=== PATIENT | female | born 1970 | race Caucasian/White ===

== ENCOUNTER 2016-11-23 13:27 | Inpatient (IN) | payer SELFPAY ==
[~2016-11-23 13:27] MED LIST: ACID CONTROL150 M2 PO; ALPRAZOLAM0.25 M3 PO; ATENOLOL50 M1 PO; CIPRO500 M1 PO; CONCERTA18 MG; DIAZEPAM2 M2 PO; DULOXETINE HCL60 M1 PO; KEFLEX500 MG PO; LYRICA100 MG/CAP PO; MECLIZINE HCL25 M3 PO; MELATONIN5 M7 PO; MOTRIN600 MG PO; NORCO 5/325 TAB1 TAB PO; PANTOPRAZOLE SO40 M3 PO; SYNTHROID112 MC1 PO; SYNTHROID125 MCG; TIZANIDINE HCL4 M3 PO; TRAMADOL HCL50 MG PO; TRIAMTERENE-HC1 EAC3 PO; VYTORIN 10-201 EACH PO; ZOCOR5 MG; ZOFRAN ODT8 MG PO
[2016-11-23] MEDS ORDERED: SEROQUEL XR50 MG/TAB PO (13:46)
[2016-11-23] MEDS ORDERED: VIIBRYD20 M1 PO (13:47)
[2016-11-23] MEDS ORDERED: PROPRANOLOL HCL40 M2 PO (14:03)
[2016-11-23 14:10] LABS: BASO % 0.3 % (0-2); EOS % 0.7 % (0-7); EOSINOPHIL ABSOLUTE COUNT 0.1 tho/cmm (0.0-0.7); HCT-HEMATOCRIT 42.4 % (34.0-49.0); HGB-HEMOGLOBIN 14.7 gm/dl (12.0-15.5); IMMATURE GRANULOCYTES ABSOLUTE 0.03 tho/cmm (0-0.03); IMMATURE GRANULOCYTES PERCENT 0.3 % (0-0.3); LYMPH ABSOLUTE COUNT 2.6 tho/cmm (0.8-4.5); MCH (MEAN CORPUSCULAR HGB) 31.7 pg (28.0-32.0); MCHC MEAN CORPUSCULAR HGB CONC 34.7 % (32.0-36.0); MCV (MEAN CELL VOLUME) 91.4 fl (82.0-96.0); MEAN PLATELET VOLUME 11.4 cmc (9.4-12.4); MONO % 5.1 % (0-12); MONOCYTE ABSOLUTE COUNT 0.5 tho/cmm (0.0-1.2); NEUTROPHIL ABSOLUTE COUNT 6.7 tho/cmm (1.6-8.0); NEUTROPHIL-AUTOMATED 6.7 tho/cmm (1.6-8.0); NEUTROPHILS % 67.6 % (40-80); PLATELET COUNT 244 tho/cmm (150-450); RED BLOOD COUNT 4.64 mil/cmm (4.00-5.20); RED CELL DISTRIBUTION WIDTH 14.5 % (12.4-16.4); WHITE BLOOD COUNT 9.9 tho/cmm (4.0-10.0)
[2016-11-23 14:16] LABS: URINE BILIRUBIN NEGATIVE (NEG); URINE BLOOD MODERATE (NEG); URINE GLUCOSE (UA) NEGATIVE (NEG); URINE KETONE SMALL (NEG); URINE LEUKOCYTE ESTERASE POSITIVE (NEG); URINE NITRITE NEGATIVE (NEG); URINE PH 6.5 (5.0-8.0)
[2016-11-23 14:17] LABS: URINE APPEARANCE HAZY; URINE COLOR YELLOW; URINE SPECIFIC GRAVITY 1.024 (1.003-1.030)
[2016-11-23 14:27] LABS: ALB/GLOB RATIO 1.3 (0.8-2.0); ALBUMIN 4.1 g/dl (3.5-5.2); ALKALINE PHOSPHATASE 48 U/L (35-104); ALT/SGPT 16 U/L (0-33); ANION GAP 11 mmol/L (5-15); BILIRUBIN,TOTAL 0.3 mg/dl (0-1.0); BLOOD UREA NITROGEN 6 mg/dl (6-25); CALCIUM 8.8 mg/dl (8.6-10.2); CARBON DIOXIDE-VENOUS 22 mmol/L (22-29); CHLORIDE 105 mmol/L (98-110); CREATININE 0.85 mg/dl (0.67-1.17); GLUCOSE 104 mg/dl (65-120); LIPASE 47 U/L (13-73); POTASSIUM 3.7 mmol/L (3.4-5.0); SODIUM 138 mmol/L (135-146); eGFR VALUE FOR BLACK >60 mL/Min
[2016-11-23 14:28] LABS: AST/SGOT 23 U/L (0-32); C-REACTIVE PROTEIN <0.2 mg/dl (0-0.5)
[2016-11-23 14:28] LABS: URINE PROT SULFOSALICYLIC ACID TRACE (NEG)
[2016-11-23 14:29] LABS: URINE BACTERIA 2+; URINE EPITHELIAL CELLS 15-20 /[HPF] (0-10); URINE MUCUS 2+; URINE RBC 0 /[HPF] (0-5); URINE WBC 0-3 /[HPF] (0-5)
[2016-11-23 20:14] LABS: TROPONIN T <0.01 ng/ml (<0.01)
[2016-11-23 22:44] LABS: TROPONIN T <0.01 ng/ml (<0.01)
[2016-11-24 07:01] LABS: BASO % 0.3 % (0-2); EOS % 1.7 % (0-7); EOSINOPHIL ABSOLUTE COUNT 0.1 tho/cmm (0.0-0.7); HCT-HEMATOCRIT 37.4 % (34.0-49.0); HGB-HEMOGLOBIN 12.3 gm/dl (12.0-15.5); IMMATURE GRANULOCYTES ABSOLUTE 0.02 tho/cmm (0-0.03); IMMATURE GRANULOCYTES PERCENT 0.3 % (0-0.3); LYMPH % 41.6 % (20-45); LYMPH ABSOLUTE COUNT 3.1 tho/cmm (0.8-4.5); MCH (MEAN CORPUSCULAR HGB) 30.5 pg (28.0-32.0); MCHC MEAN CORPUSCULAR HGB CONC 32.9 % (32.0-36.0); MCV (MEAN CELL VOLUME) 92.8 fl (82.0-96.0); MEAN PLATELET VOLUME 11.4 cmc (9.4-12.4); MONO % 8.8 % (0-12); MONOCYTE ABSOLUTE COUNT 0.7 tho/cmm (0.0-1.2); NEUTROPHIL ABSOLUTE COUNT 3.5 tho/cmm (1.6-8.0); NEUTROPHIL-AUTOMATED 3.5 tho/cmm (1.6-8.0); NEUTROPHILS % 47.3 % (40-80); PLATELET COUNT 207 tho/cmm (150-450); RED BLOOD COUNT 4.03 mil/cmm (4.00-5.20); RED CELL DISTRIBUTION WIDTH 14.6 % (12.4-16.4); WHITE BLOOD COUNT 7.5 tho/cmm (4.0-10.0)
[2016-11-24 07:16] LABS: ANION GAP 11 mmol/L (5-15); BLOOD UREA NITROGEN 5 mg/dl (6-25); CALCIUM 8.2 mg/dl (8.6-10.2); CARBON DIOXIDE-VENOUS 25 mmol/L (22-29); CHLORIDE 104 mmol/L (98-110); CREATININE 0.96 mg/dl (0.67-1.17); GLUCOSE 90 mg/dl (65-120); MAGNESIUM 2.2 mg/dl (1.7-2.5); POTASSIUM 3.5 mmol/L (3.4-5.0); SODIUM 140 mmol/L (135-146); TROPONIN T <0.01 ng/ml (<0.01); eGFR VALUE FOR BLACK >60 mL/Min
[2016-11-24] MEDS ORDERED: CARAFATE1 G2 PO (12:18)
[2016-11-24] MEDS ORDERED: NICODERM CQ1 EAC1 TD (12:18)
== END 2016-11-24 14:59 | DRG 392 ==
LOC: EDMED 13:27 → EMR2 15:54 → 5WD 19:09
PROVIDERS: Emergency Medicine; Internal Medicine Cardiovascular Disease; ADMIT Hospitalist
DX: K29.00 Acute gastritis without bleeding (principal); I10 Essential (primary) hypertension; K22.70 Barrett's esophagus without dysplasia; K21.9 Gastro-esophageal reflux disease without esophagitis; F17.210 Nicotine dependence, cigarettes, uncomplicated; F41.9 Anxiety disorder, unspecified; E03.9 Hypothyroidism, unspecified; G43.909 Migraine, unspecified, not intractable, without status migrainosus; M54.9 Dorsalgia, unspecified; Z90.49 Acquired absence of other specified parts of digestive tract; H91.90 Unspecified hearing loss, unspecified ear
CPT/HCPCS: C9113; G0478; J1170; J1200; J2405; J7030; Q9967